=== PATIENT | female | born 1980 | race Two or more races ===

== ENCOUNTER → 2019-08-13 | Outpatient (CLI) | payer OTHER ==
--- NOTE | 2019-08-13 11:51 | DIREP ---
PROCEDURE:MAMMO BILATERAL DIAGNOSTIC COMPARISON:None. INDICATIONS:BREAST LUMP BREAST COMPOSITION:The breasts are heterogeneously dense, which may obscure small masses. DIAGNOSTIC MAMMOGRAM: Bilateral CC MLO and right spot compression views. Computer Assisted Detection (CAD) was utilized. No suspicious mass lesion or clustered microcalcification. BREAST SONOGRAM:Sonography of right breast and axilla was performed. Right breast area of palpable 12 o'clock 4 cm the nipple is a cyst measuring 6 mm. Two o'clock 1 cm from the nipple is a cyst measuring 7 mm. Twelve o'clock 5 cm the nipple is a cyst measuring 7 mm. Eleven o'clock 3 cm from the nipple is a cyst measuring 8 mm. Eleven o'clock 3 cm from the nipple is a cyst measuring 7 mm. One o'clock 1 cm from the nipple is a cyst measuring 9 mm. Seven o'clock 1 cm from the nipple is a bilobed cluster of cysts measuring 9 mm. Ten o'clock 2 cm from the nipple is a cyst measuring 8 mm. IMPRESSION:Complex dense background tissue and multiple right breast cysts. No suspicious findings. RECOMMENDATIONS: CLINICAL EVALUATION. Follow up with referring healthcare provider. OVERALL FINAL ASSESSMENT: BI RADS 1- Negative. Dictated by: Anton Lucio MD on 08/13/2019 at 11:43 AM
--- NOTE | 2019-08-13 11:54 | DIREP ---
PROCEDURE:US BREAST-RT CONCLUSION:Please refer to the accompanying Diagnostic Mammogram Report, which will be available once transcribed and signed. Dictated by: Anton Lucio MD on 08/13/2019 at 11:51 AM
== END | disposition home or self-care (01) ==
LOC: RAD 09:41
PROVIDERS: ATTEND Internal Medicine
DX: N60.01 Solitary cyst of right breast (principal); N63.0 Unspecified lump in unspecified breast
CPT/HCPCS: 76641; 77066